=== PATIENT | female | born 2005 | race Caucasian/White ===

== ENCOUNTER 2024-06-21 17:03 | Emergency (ER) | payer SELFPAY ==
[~2024-06-21] VITALS: Ht 162.6 cm; Wt 59.0 kg
[2024-06-21 17:09] VITALS: BP 116/72; PULSE 108; RESP 16; TEMP 98.6; O2SAT 100
[2024-06-21] MEDS: LEVETIRACETAM 500MG PREMIX 100 ML IV ONE (20:10)
[2024-06-21] MEDS ORDERED: LAMOTRIGINE 100MG TABLET PO SCH (20:15)
[2024-06-21 20:23] LABS: BASOPHILS % 0.6 % (0.0-2.0); DIFFERENTIAL COMMENT 0; EOSINOPHILS % 0.2 % (0.0-5.0); HEMATOCRIT. 33.5 % (36.0-48.0); HEMOGLOBIN. 10.8 g/dL (12.0-16.0); LYMPHOCYTES % 12.6 % (20.0-50.0); MEAN CORPUSCULAR HEMOGLOBIN 23.8 pg (28.0-32.0); MEAN CORPUSCULAR HGB CONC 32.1 g/dL (31.0-37.0); MEAN CORPUSCULAR VOLUME 74.1 fL (81.0-99.0); MEAN PLATELET VOLUME 7.8 fl (7.4-10.4); MONOCYTES % 7.6 % (2.0-8.0); PLATELET 312 x1000/uL (130-400); RED BLOOD CELL COUNT 4.53 mill/uL (4.2-5.4); RED CELL DISTRIBUTION WIDTH 17.2 % (11.6-14.6); WHITE BLOOD COUNT 7.3 x1000/uL (4.5-11.0)
[2024-06-21 20:28] LABS: CHLORIDE 106 mEq/L (98-107); POTASSIUM 4.3 mEq/L (3.5-5.1); SODIUM 137 mEq/L (136-145)
[2024-06-21 20:30] LABS: CALCIUM 9.3 mg/dL (8.7-10.4); CARBON DIOXIDE 25 mEq/L (21-32)
[2024-06-21 20:35] LABS: CREATININE 0.5 mg/dL (0.6-1.0); GLUCOSE 82 mg/dL (70-105); UREA NITROGEN BLOOD 8 mg/dL (9-23)
[2024-06-21 20:36] LABS: ALANINE AMINOTRANSFERASE 13 IU/L (10-49)
[2024-06-21 20:37] LABS: ALBUMIN 4.6 g/dL (3.2-4.8); ASPARTATE AMINOTRANSFERASE 21 IU/L (<34); BILIRUBIN TOTAL 0.6 mg/dL (0.1-1.0); ETHANOL BLOOD < 10 mg/dL (<10)
[2024-06-21 20:38] LABS: PROTEIN TOTAL 7.6 g/dL (6.0-8.3)
[2024-06-21] MEDS ORDERED: ACETAMINOPHEN 500MG TABLET PO ONE (20:45)
[2024-06-21 20:49] LABS: HCG SCREEN NEGATIVE
== END 2024-06-21 22:48 | disposition home or self-care (01) ==
LOC: ER 17:03
DX: R56.9 Unspecified convulsions (principal); R51.9 Headache, unspecified
CPT/HCPCS: 80053; 80320; 82962; 84703; 85025; 36415; 70450; 93005; 96365; 99285; J1953; G0480